=== PATIENT | male | born 1995 | race African-American/Black ===

== ENCOUNTER 2018-09-02 07:28 | Emergency (ER) | payer OTHER ==
[~2018-09-02] VITALS: Ht 167.6 cm; Wt 86.2 kg
[2018-09-02 07:35] VITALS: TEMP 97.9
[2018-09-02 09:50] VITALS: BP 137/68
== END 2018-09-02 09:50 | disposition home or self-care (01) ==
LOC: ED 07:28
DX: S63.591A Other specified sprain of right wrist, initial encounter (principal); X50.3XXA Overexertion from repetitive movements, initial encounter; Y92.89 Other specified places as the place of occurrence of the external cause
CPT/HCPCS: 96372; 99283; J1885

== ENCOUNTER 2019-11-22 09:30 | Emergency (ER) | payer OTHER ==
[~2019-11-22] VITALS: Ht 167.6 cm; Wt 95.3 kg
[2019-11-22 10:00] VITALS: BP 128/76; TEMP 97.7
== END 2019-11-22 10:07 | disposition home or self-care (01) ==
LOC: ED 09:30
DX: J20.9 Acute bronchitis, unspecified (principal)
CPT/HCPCS: 99282